=== PATIENT | male | born 1955 | race Caucasian/White ===

== ENCOUNTER 2024-08-17 10:10 | Emergency (ER) | payer MEDICARE, SELFPAY ==
[2024-08-17 10:37] VITALS: BP 149/95
--- NOTE | 2024-08-17 12:09 | ED.GENMED ---
History of Present Illness
General
Chief Complaint: Flank Pain
Source: patient
Exam Limitations: none
Time Seen by Provider: 08/17/24 11:29
Nursing documentation reviewed up to this point in time: agreed with
History of Present Illness
History of Present Illness:
Patient is a 69-year-old male with history of hypothyroidism and kidney stones approximate 10 years ago presents to the ER complaining of pain to his left flank. He noticed pain on Thursday several times and that pain resolved. He then started
with intense pain this morning that he woke up with. He did feel little urgency with this pain. Currently he feels better. He does report this pain does feel similar to his previous kidney stone 10 years ago. He did pass that stone on his own
has never seen urologist. He currently denies pain denies any nausea vomiting. Denies any burning with urination. Denies any difficulty urinating. Denies any fevers.
Past History
Past History
ED Past Medical History: GERD and Psychiatric (Anxiety)
ED Past Surgical History: Other (Hernia repair)
Social History
Tobacco: Non-smoker
Drug: None
Personal:
Living: with family
Employment: Employed
Family History
Family History: Other
Review of Systems
Review of Systems
Allergies reviewed?: Yes
All Other Systems: ROS reviewed and negative except as documented in HPI and ROS
Constitutional: Reports no symptoms; Denies fever, fatigue or chills
Respiratory: Reports no symptoms
Cardiac: Reports no symptoms
ABD/GI: Denies abdominal pain, nausea, vomiting or diarrhea
: Reports flank pain and urgency; Denies dysuria, frequency or incontinence
Musculoskeletal: Reports no symptoms
Neurological: Reports no symptoms
Psychiatric: Reports no symptoms
Phy Exam
General Physical Exam
General Presentation: no apparent distress
General age: appears stated age
General Skin: warm and dry
General Habitus: normal
General Mental: alert
General Hydration: appears well hydrated
Gastrointestinal Exam
Gastrointestinal Exam: non tender and soft
Neurological Exam
Neurological Exam: alert and oriented x3
Musculoskeletal Exam
Musculoskeletal Exam: full ROM
Skin Exam
Skin Exam: normal color and warm/dry
Psychiatric Exam
Psychiatric Exam: normal mood/affect
Course
Orders/Labs/Results
Orders:
Orders
08/17/24 12:08
Complete Blood Count/With Diff Urgent
Comprehensive Metabolic Panel Urgent
Urinalysis Reflex To Culture Urgent
Date Specimen was Collected: 08/17/24
Time Specimen was Collected: 11:07
Urine Microscopic Reflex Cult Urgent
08/17/24 12:10
CT Abd/pel Without Iv Or Oral Urgent
Comment:
Reason For Exam: left flank pain
08/17/24 12:11
IV Insert/Care/Rem.- Treatment PRN
0.9% Sodium Chloride 1000 ml [Nss] 1,000 ml IV BOLUS
Abnormal Lab Results
08/17/24
12:08
Abs Immat Gran (auto) 0.1 H 10^3/uL
(0-0.05)
Absolute Neuts (auto) 7.8 H 10^3/uL
(1.4-6.5)
Neutrophils % 79.9 H %
(42.2-75.2)
Lymphocytes % 12.6 L %
(20.5-51.1)
Ur Occult Blood Reflex 4+ A
(Negative)
Urine RBC 26-30 A /HPF
(0-2)
Urine Bacteria (Reflex) Few A
(Negative)
08/17/24 12:08
08/17/24 12:08
Vital Signs
Initial and Last Documented VS:
Initial Vital Signs
Temp Pulse Resp BP Pulse Ox
98 F 73 18 149/95 98
08/17/24 10:37 08/17/24 10:37 08/17/24 10:37 08/17/24 10:37 08/17/24 10:37
Last Documented Vital Signs
Temp Pulse Resp BP Pulse Ox
98 F 73 18 149/95 98
08/17/24 10:37 08/17/24 10:37 08/17/24 10:37 08/17/24 10:37 08/17/24 10:37
MDM/Problems Addressed
Differential Diagnosis Includes:
Not limited to musculoskeletal back pain, renal stone, less likely pyelonephritis, UTI
MDM/Problems Addressed:
Patient with a 0.3 cm calculus at the distal left UVJ. Patient is feeling much better received Toradol wishes to only take NSAIDs will DC with Flomax and urology follow-up.
Chronic conditions affecting care:
hx of renal stone
*Radiology
Radiology exam reviewed: radiology read reviewed
*Critical Care Note
Total Time (30-74mins, 75-104mins- exclusive of procedures): Not Applicable
ED Attending Note
-
Portions of this chart may have been created with voice recognition software.� Occasional wrong word or��sound alike� substitutions may have occurred due to the inherent limitations of voice recognition software.
Discharge Plan
Departure
Patient Disposition: Home (Routine Discharge)
Date of Disposition: 08/17/24
Time of Disposition: 14:14
Patient with high blood pressure during this ER visit?: Yes
Condition: Fair
Covid-19: Not Applicable
Discharge Problem:
Kidney stone on left side
Instructions: Kidney Stones (DC), BLOOD PRESSURE
Prescriptions:
New
tamsulosin [Flomax] 0.4 mg capsule
0.4 mg PO DAILY Qty: 7 0RF
No Action
rabeprazole [AcipHex] 20 MG tablet,delayed release (DR/EC)
20 mg PO PRN PRN (Reason: heartburn)
Referrals:
Cameron Johnson MD [Active, Urology]
Karen aMthew DO [Family Provider, Family Practice]
Activity Restrictions/Additional Instructions:
As discussed increase water intake strain all urine. Start Flomax daily once a day for the next 7 days. May take ibuprofen every 8 hours with food for discomfort alternate with Tylenol. Follow-up closely with urology call today to make an
appointment soon as possible.
return if any worsening of symptoms.
Interventions
Interventions:
*Risk Screen - Suicide Last Done: 08/17/24 10:37
*General Assessment Last Done: 08/17/24 10:37
*Neglect/Abuse Screening Last Done: 08/17/24 10:37
RP-Wtdneu-Iattuctamj Assessment Last Done: 08/17/24 12:27
ED-Male Genitourinary Assessment Last Done: 08/17/24 12:27
Discharge Date and Time
Print Language: LAO
[2024-08-17] MEDS: NSS 1000 IV (12:21)
[2024-08-17 12:25] LABS: % Basophils 0.6 % (0-2); % Eosinophils 0.5 % (0-6); % Immature Granulocytes 0.5 % (0-0.5); % Lymphocytes 12.6 % (20.5-51.1); % Monocytes 5.9 % (1.7-9.3); % Neutrophils 79.9 % (42.2-75.2); Absolute Basophils 0.1 10^3/uL (0-0.2); Absolute Eosinophils 0.1 10^3/uL (0-0.7); Absolute Immature Granulocytes 0.1 10^3/uL (0-0.05); Absolute Lymphocytes 1.2 10^3/uL (1.2-3.4); Absolute Monocytes 0.6 10^3/uL (0.1-0.6); Absolute Neutrophils 7.8 10^3/uL (1.4-6.5); Hematocrit 48.2 % (39.0-52.0); Hemoglobin 16.5 g/dL (13.0-18.0); Mean Corp Hgb Conc. 34.2 g/dL (33.0-37.0); Mean Corpuscular Hgb 30.7 pg (27.0-31.0); Mean Corpuscular Volume 89.6 fL (80.0-94.0); Mean Platelet Volume 9.7 fL (7.4-10.4); Nucleated Red Blood Cells % 0 % (-); Platelet Count 188 10^3/uL (130-400); Red Blood Cell Count 5.38 10^6/uL (4.70-6.10); Red Cell Dist. Width 12.3 % (11.5-14.5); White Blood Cell Count 9.8 10^3/uL (4.8-10.8)
[2024-08-17 12:27] LABS: Urine Albumin Negative (Neg - Trace); Urine Bilirubin Negative (Negative); Urine Character Slightly Cloudy (Clear); Urine Color Yellow; Urine Glucose Negative (Negative); Urine Ketone Negative (Negative); Urine Leukocyte Negative (Negative); Urine Nitrite Negative (Negative); Urine Occult Blood 4+ (Negative); Urine Specific Gravity 1.005 (<1.030); Urine Urobilinogen Negative (Neg - 1+)
[2024-08-17 12:32] LABS: Urine Bacteria Few (Negative); Urine Squamous Cell 0-2 /LPF (Few); Urine White Cell 0-2 /HPF (0-5)
[2024-08-17 12:33] LABS: Urine Red Blood Cell 26-30 /HPF (0-2)
[2024-08-17 12:54] LABS: ALT (SGPT) 28 U/L (0-50); AST (SGOT) 25 U/L (17-59); Albumin 4.8 g/dl (3.5-5.0); Alkaline Phosphatase 58 U/L (38-126); Blood Urea Nitrogen 15 mg/dl (9-20); Calcium 9.7 mg/dl (8.4-10.2); Carbon Dioxide 28 mmol/L (22-30); Chloride 104 mmol/L (98-107); Glucose 99 mg/dl (70-99); Potassium 3.6 mmol/L (3.5-5.1); Sodium 141 mmol/L (135-145); Total Bilirubin 1.1 mg/dl (0.2-1.3); Total Protein 7.7 g/dl (6.3-8.2); eGFR > 60.00
[2024-08-17 14:38] VITALS: BP 121/88
== END 2024-08-17 14:45 | disposition home or self-care (01) ==
LOC: EMR 10:10
PROVIDERS: EMERGENCY PHYSICIAN Student in an Organized Health Care Education/Training Program; FAMILY PHYSICIAN Internal Medicine
DX: N13.2 Hydronephrosis with renal and ureteral calculous obstruction (principal); E03.9 Hypothyroidism, unspecified; K21.9 Gastro-esophageal reflux disease without esophagitis; F41.9 Anxiety disorder, unspecified; Z87.442 Personal history of urinary calculi
CPT/HCPCS: 99284; 74176; 80053; 81003; 81015; 85025